=== PATIENT | male | born 1975 | race African-American/Black ===

== ENCOUNTER 2017-02-07 10:00 | Emergency (ER) | payer OTHER ==
[~2017-02-07] VITALS: Ht 180.3 cm; Wt 136.1 kg
[~2017-02-07 10:00] MED LIST: 378 PO; 382 PO; ATA25 PO; CLA10 PO; DEP250 PO; KLO0.5 PO; LATUDA PO; RANITIDINE HCL PO; TOP100 PO; [UNRECOGNIZED DRUG - OTHER] HHN; [UNRECOGNIZED DRUG - OTHER] IM; [UNRECOGNIZED DRUG - OTHER] PO
[2017-02-07 10:58] LABS: BASOPHIL % 0.6 % (0-2); PLATELET COUNT 185 x10^3mcL (130-400)
[2017-02-07 11:06] LABS: CALCIUM 8.4 mg/dL (8.5-10.1); CARBON DIOXIDE 27.1 mmol/L (21-32); CHLORIDE SERUM 106 mmol/L (98-107); GFR1 > 60 mL/min; GLUCOSE SERUM 98 mg/dL (74-106); POTASSIUM SERUM 4.1 mmol/L (3.5-5.1); SODIUM SERUM 138 mmol/L (136-145)
[2017-02-07 11:11] LABS: ALBUMIN 3.6 g/dL (3.4-5.0); ALKALINE PHOSPHATASE 63 U/L (46-116); ALT/SGPT 20 U/L (16-63); AST/SGOT 15 U/L (15-37); BILIRUBIN TOTAL 0.27 mg/dL (0.20-1.00)
[2017-02-07 11:12] LABS: microscopic required? NO
[2017-02-07 11:22] LABS: UA SPECIFIC GRAVITY 1.015 (1.005-1.035); urine erythrocyte NEGATIVE (NEGATIVE)
[2017-02-07 11:27] VITALS: BP 140/87
== END 2017-02-07 13:15 | disposition home or self-care (01) ==
LOC: ED 10:00
PROVIDERS: Emergency Medicine
DX: R42 Dizziness and giddiness (principal); I10 Essential (primary) hypertension; F20.9 Schizophrenia, unspecified; F70 Mild intellectual disabilities; F17.200 Nicotine dependence, unspecified, uncomplicated; Z88.0 Allergy status to penicillin; Z79.899 Other long term (current) drug therapy
CPT/HCPCS: J7040; J8597; Q0092

== ENCOUNTER 2018-01-09 19:17 | Emergency (ER) | payer OTHER ==
[~2018-01-09] VITALS: Ht 177.8 cm; Wt 137.0 kg
[2018-01-09 19:52] VITALS: Ht 177.8 cm; Wt 137.0 kg
[2018-01-09 23:10] VITALS: BP 136/88
== END 2018-01-09 23:10 | disposition home or self-care (01) ==
LOC: ED 19:17
DX: N45.1 Epididymitis (principal); I10 Essential (primary) hypertension; J45.909 Unspecified asthma, uncomplicated; Z88.0 Allergy status to penicillin

== ENCOUNTER 2018-06-15 09:06 | Emergency (ER) | payer OTHER ==
[~2018-06-15] VITALS: Ht 165.1 cm; Wt 133.4 kg
[2018-06-15 09:12] VITALS: Ht 165.1 cm; Wt 133.4 kg
[2018-06-15 10:44] VITALS: BP 140/91
[2018-06-15 10:45] LABS: UA SPECIFIC GRAVITY >=1.030 (1.005-1.035); microscopic required? YES; urine erythrocyte 2+ (NEGATIVE)
== END 2018-06-15 10:44 | disposition home or self-care (01) ==
LOC: ED 09:06
PROVIDERS: Emergency Medicine
DX: N39.0 Urinary tract infection, site not specified (principal); J45.909 Unspecified asthma, uncomplicated; I10 Essential (primary) hypertension; F20.9 Schizophrenia, unspecified
CPT/HCPCS: 87491; 87591

== ENCOUNTER 2018-09-19 10:56 | Emergency (ER) | payer OTHER ==
[~2018-09-19] VITALS: Ht 167.6 cm; Wt 132.9 kg
[2018-09-19 11:04] VITALS: Ht 167.6 cm; Wt 132.9 kg
[2018-09-19 11:58] VITALS: BP 141/101
== END 2018-09-19 11:58 | disposition home or self-care (01) ==
LOC: ED 10:56
DX: R35.0 Frequency of micturition (principal); R30.0 Dysuria; F20.9 Schizophrenia, unspecified

== ENCOUNTER 2018-10-01 08:10 | Emergency (ER) | payer OTHER ==
[~2018-10-01] VITALS: Ht 180.3 cm; Wt 133.8 kg
[2018-10-01 08:23] VITALS: Ht 180.3 cm; Wt 133.8 kg
[2018-10-01 09:31] VITALS: BP 149/93
== END 2018-10-01 09:32 | disposition home or self-care (01) ==
LOC: ED 08:10
DX: I10 Essential (primary) hypertension (principal); F20.9 Schizophrenia, unspecified; J45.909 Unspecified asthma, uncomplicated; F79 Unspecified intellectual disabilities

== ENCOUNTER 2018-10-24 09:42 | Emergency (ER) | payer OTHER ==
[~2018-10-24] VITALS: Ht 180.3 cm; Wt 127.0 kg
[2018-10-24 09:54] VITALS: Ht 180.3 cm; Wt 127.0 kg
[2018-10-24 10:27] LABS: microscopic required? YES; urine erythrocyte NEGATIVE (NEGATIVE)
[2018-10-24 11:16] VITALS: BP 144/98
== END 2018-10-24 11:16 | disposition home or self-care (01) ==
LOC: ED 09:42
PROVIDERS: Emergency Medicine
DX: N39.0 Urinary tract infection, site not specified (principal); J45.909 Unspecified asthma, uncomplicated; I10 Essential (primary) hypertension; F20.9 Schizophrenia, unspecified

== ENCOUNTER 2018-11-16 10:25 | Emergency (ER) | payer OTHER ==
[~2018-11-16] VITALS: Ht 182.9 cm; Wt 126.6 kg
[2018-11-16 10:36] VITALS: Ht 182.9 cm; Wt 126.6 kg
[2018-11-16 11:03] LABS: microscopic required? NO
[2018-11-16 11:32] LABS: urine erythrocyte NEGATIVE (NEGATIVE)
[2018-11-16 11:46] LABS: BASOPHIL % 0.3 % (0-2); PLATELET COUNT 142 x10^3mcL (130-400); RED CELL DISTRIBUTION WIDTH 13.9 % (11.5-14.5)
[2018-11-16 11:47] LABS: CALCIUM 8.2 mg/dL (8.5-10.1); CARBON DIOXIDE 29.7 mmol/L (21-32); CHLORIDE SERUM 107 mmol/L (98-107); CREATININE SERUM 1.2 mg/dL (0.7-1.3); GFR1 > 60 mL/min; GLUCOSE SERUM 78 mg/dL (74-106); POTASSIUM SERUM 4.2 mmol/L (3.5-5.1); SODIUM SERUM 140 mmol/L (136-145)
[2018-11-16 12:03] LABS: ALBUMIN 3.5 g/dL (3.4-5.0); ALKALINE PHOSPHATASE 52 U/L (46-116); ALT/SGPT 34 U/L (16-63); AST/SGOT 25 U/L (15-37); BILIRUBIN TOTAL 0.31 mg/dL (0.20-1.00)
[2018-11-16 13:43] VITALS: BP 123/72
== END 2018-11-16 13:42 | disposition home or self-care (01) ==
LOC: ED 10:25
PROVIDERS: Emergency Medicine
DX: N39.0 Urinary tract infection, site not specified (principal); R41.0 Disorientation, unspecified; J45.909 Unspecified asthma, uncomplicated; I10 Essential (primary) hypertension; F20.9 Schizophrenia, unspecified; F79 Unspecified intellectual disabilities
CPT/HCPCS: 36415

== ENCOUNTER 2019-01-04 15:36 | Emergency (ER) | payer OTHER ==
[~2019-01-04] VITALS: Ht 177.8 cm; Wt 126.1 kg
[2019-01-04 15:53] VITALS: Ht 177.8 cm; Wt 126.1 kg
[2019-01-04 17:26] LABS: microscopic required? NO
[2019-01-04 17:53] LABS: urine erythrocyte NEGATIVE (NEGATIVE)
[2019-01-04 18:18] VITALS: BP 142/95
== END 2019-01-04 18:18 | disposition home or self-care (01) ==
LOC: ED 15:36
PROVIDERS: Emergency Medicine
DX: R35.0 Frequency of micturition (principal); J45.909 Unspecified asthma, uncomplicated; I10 Essential (primary) hypertension; F20.9 Schizophrenia, unspecified

== ENCOUNTER 2019-04-09 07:31 | Emergency (ER) | payer OTHER ==
[~2019-04-09] VITALS: Ht 172.7 cm; Wt 123.4 kg
[2019-04-09 07:34] VITALS: BP 159/106; Ht 172.7 cm; Wt 123.4 kg
[2019-04-09 08:25] LABS: BASOPHIL % 0.5 % (0-2); PLATELET COUNT 132 x10^3mcL (130-400); RED CELL DISTRIBUTION WIDTH 13.9 % (11.5-14.5)
[2019-04-09 08:47] LABS: CHLORIDE SERUM 106 mmol/L (98-107); CREATININE SERUM 1.1 mg/dL (0.7-1.3); GFR1 > 60 mL/min; GLUCOSE SERUM 86 mg/dL (74-106); SODIUM SERUM 139 mmol/L (136-145); TOTAL PROTEIN, SERUM 6.7 g/dL (6.4-8.2)
[2019-04-09 08:48] LABS: ALBUMIN 3.4 g/dL (3.4-5.0); ALKALINE PHOSPHATASE 55 U/L (46-116); ALT/SGPT 24 U/L (16-63); AST/SGOT 13 U/L (15-37); BILIRUBIN TOTAL 0.39 mg/dL (0.20-1.00); CALCIUM 8.9 mg/dL (8.5-10.1)
[2019-04-09 09:59] LABS: UA SPECIFIC GRAVITY 1.025 (1.005-1.035); microscopic required? YES; urine erythrocyte NEGATIVE (NEGATIVE)
== END 2019-04-09 10:44 | disposition home or self-care (01) ==
LOC: ED 07:31
PROVIDERS: Emergency Medicine
DX: R53.1 Weakness (principal); B34.9 Viral infection, unspecified; R79.0 Abnormal level of blood mineral; J45.909 Unspecified asthma, uncomplicated; I10 Essential (primary) hypertension
CPT/HCPCS: 36415

== ENCOUNTER 2019-11-25 09:43 | Emergency (ER) | payer OTHER ==
[~2019-11-25] VITALS: Ht 185.4 cm; Wt 119.7 kg
[2019-11-25 09:54] VITALS: Ht 185.4 cm; Wt 119.7 kg
[2019-11-25 10:28] LABS: microscopic required? NO
[2019-11-25 10:48] LABS: urine erythrocyte NEGATIVE (NEGATIVE)
[2019-11-25 11:48] VITALS: BP 122/78
== END 2019-11-25 11:48 | disposition home or self-care (01) ==
LOC: ED 09:43
PROVIDERS: Student in an Organized Health Care Education/Training Program
DX: R62.50 Unspecified lack of expected normal physiological development in childhood (principal); R45.86 Emotional lability; F20.9 Schizophrenia, unspecified; J45.909 Unspecified asthma, uncomplicated; I10 Essential (primary) hypertension

== ENCOUNTER 2020-07-18 10:25 | Emergency (ER) | payer OTHER ==
[~2020-07-18] VITALS: Ht 180.3 cm; Wt 131.5 kg
[2020-07-18 10:39] VITALS: Ht 180.3 cm; Wt 131.5 kg
[2020-07-18 12:30] VITALS: BP 165/95
== END 2020-07-18 13:17 | disposition home or self-care (01) ==
LOC: ED 10:25
DX: L29.9 Pruritus, unspecified (principal); R51 Headache; B35.6 Tinea cruris; J45.909 Unspecified asthma, uncomplicated

== ENCOUNTER 2020-07-19 11:14 | Emergency (ER) | payer OTHER, SELFPAY ==
[~2020-07-19] VITALS: Ht 180.3 cm; Wt 131.1 kg
[2020-07-19 11:17] VITALS: BP 146/102; Ht 180.3 cm; Wt 131.1 kg
== END 2020-07-19 13:12 | disposition home or self-care (01) ==
LOC: ED 11:14
DX: I10 Essential (primary) hypertension (principal); F20.9 Schizophrenia, unspecified; J45.909 Unspecified asthma, uncomplicated